=== PATIENT | female | born 1965 | race Asian ===

== ENCOUNTER 2016-08-28 23:20 | Emergency (ER) | payer OTHER ==
--- NOTE | ~2016-08-28 | CT2 ---
[facility] A Service of [facility] & [facility] RADIOLOGY TEXT RESULTS PATIENT: JOAQUIN QUIJANO LOCATION: [facility] : [birth year] UNIT #: [id number] AGE: [address]: Jay Hook DO SEX: F ORDER DR: [id number] [facility] [address]. [place], [place] [address] [id number] E MR#: [id number] #: [id number] NAME: JOAQUIN QUIJANO : 1965 SEX: F STUDY DATE/TIME: 08/29/2016 0:53 UNIT: [facility] ROOM: STUDY DESCRIPTION: CT Abd and Pelv W Cont Attending Physician: Jay Hook D.O. Ordering Physician: Jay Hook D.O. Primary Care Physician: Primary Care Physician No MEDICAL IMAGING REPORT This report is preliminary unless electronic signature is present EXAM CT abdomen and pelvis with contrast INDICATIONS Abdominal pain for a month, nausea and vomiting. TECHNIQUE The patient was given 100 mL of Isovue-370 and axial 5-mm images were obtained through the abdomen and pelvis. This CT exam was performed with one or more of the following radiation dose reduction techniques: Automatic exposure control, adjustment of mA and/or kV according to patient size, and iterative reconstruction. There is no comparison. FINDINGS The lung bases are clear. There is a left lobe hepatic lesion that is low in density with some minimal peripheral nodular enhancement and is likely a hemangioma. It is 2.7 cm in diameter. The spleen, pancreas, adrenal glands and kidneys are normal. The gallbladder is normal. The bowel is normal. The uterus has a large fibroid in its anterior myometrium measuring 4.5 cm in diameter and is otherwise normal. There is a right ovarian cyst measuring 5.4 cm in diameter. The bones are unremarkable. The right ovarian cystic lesion has a small amount of soft tissue density along one side and is otherwise unilocular. IMPRESSION 1. 5.4 cm slightly complex right ovarian cystic lesion. 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 2. 4.5 cm uterine fibroid. 3. 2.7 cm lesion in the left lobe of the liver which is very likely a hemangioma. Correlation with any old studies is recommended and/or STS. [facility] A Service of [facility] & [facility] RADIOLOGY TEXT RESULTS PATIENT: JOAQUIN QUIJANO LOCATION: [facility] : [birth year] UNIT #: [id number] AGE: [address]: Jay Hook DO SEX: F ORDER DR: follow up with an outpatient multiphase CT scan or MRI could be performed. 4. Otherwise, the study is normal. Dictated by... Kash Linn M.D. THIS IS AN ELECTRONICALLY VERIFIED REPORT Kash Linn M.D. at 08/29/2016 2:15 PM FEL/psc TD: 08/29/2016 01:47 JOB #: [id number] MEDICAL IMAGING REPORT Page 1 of 1 COPY
--- NOTE | ~2016-08-28 | EKG ---
PATIENT: JOAQUIN QUIJANO UNIT #: [id number] Ventricular Rate: 51 BPM Atrial Rate: 51 BPM P-R Interval: 144 ms QRS Duration: 78 ms Q-T Interval: 502 ms QTC Calculation(Bezet): 462 ms P [place]: 20 degrees Calculated R [place]: 44 degrees Calculated T [place]: 58 degrees Diagnosis Line: Sinus bradycardia Diagnosis Line: Borderline ECG Diagnosis Line: No previous ECGs available Diagnosis Line: Confirmed by AUBREE DOWNING MD ([id number]) on Diagnosis Line: 08/29/2016 7:20:29 AM INTERPRETING MD: GAYLA
[2016-08-28 22:44] LABS: EOSINOPHIL% 1.1 % (0.0-7.0); HEMATOCRIT 32.9 % (35.0-45.0); HEMOGLOBIN 11.1 gm/dL (12.0-16.0); LYMPHOCYTE# 2.1 X10e3 (1.0-3.5); LYMPHOCYTE% 56.5 % (17.0-45.0); MEAN CELL VOLUME 92.7 FL (83-96); MEAN CORPUSCULAR HEMOGLOBIN 31.4 PG (28-34); MEAN CORPUSCULAR HGB CONC 33.9 g/dL (30-36); MEAN PLATELET VOLUME 8.8 FL (6.5-11.5); MONOCYTE# 0.4 X10e3 (0-1.0); MONOCYTE% 9.7 % (3.0-12.0); NEUTROPHIL# 1.2 X10e3 (1.5-7.1); NEUTROPHIL% 31.7 % (40-75); PLATELET COUNT 239 X10e3 (140-420); RED BLOOD COUNT 3.55 X10e (3.90-5.30); RED CELL DISTRIBUTION WIDTH 12.2 % (11.0-15.5); WHITE BLOOD COUNT 3.7 X10e3 (4.0-10.5)
[2016-08-28 22:45] LABS: DIFF IND YES
[2016-08-28 23:03] LABS: ALBUMIN SERUM 3.7 g/dL (3.5-5.0); BILIRUBIN, DIRECT 0.1 mg/dL (0.0-0.2); BILIRUBIN,INDIRECT 0.7 mg/dL (0.0-0.9); BILIRUBIN,TOTAL 0.8 mg/dL (0.2-2.0); CALCIUM SERUM 8.6 mg/dL (8.4-10.2); CREATININE SERUM 0.5 mg/dL (0.6-1.4); GLOM FILT RATE Estimated 113.7 mL/min (>60); POTASSIUM 3.5 mmol/L (3.5-5.1); PROTEIN TOTAL SERUM 6.8 g/dL (6.0-8.3)
[2016-08-28 23:08] LABS: URINE SOURCE CLEAN CATCH
[2016-08-28 23:11] LABS: PLATELET ESTIMATE NORMAL (NORMAL); RBC NORMAL YES
[2016-08-28 23:15] LABS: URINE APPEARANCE CLEAR; URINE BILIRUBIN NEG (NEG); URINE BLOOD 2+ (NEG); URINE COLOR YELLOW; URINE GLUCOSE NEG (NEG); URINE KETONE NEG (NEG); URINE LEUKOCYTE ESTERASE NEG (NEG); URINE NITRATE NEG (NEG); URINE PROTEIN NEG (NEG)
[2016-08-28 23:18] LABS: U HYALINE CASTS AUWI 0-2 /[LPF]; URINE BACTERIA AUWI NEG (NEGATIVE); URINE SQUAMOUS EPITHELIAL CELL NONE SEEN /[HPF]; UWBCS1 AUWI 0-2 (0-5)
[2016-08-28 23:22] LABS: CULTURE INDICATED? NO
[2016-08-29 00:15] LABS: POC - CKMB <1.0 ng/mL (0.0-7.9); POC - TROPONIN <0.05 ng/mL (<=0.05)
== END 2016-08-29 05:07 | disposition home or self-care (01) ==
LOC: CED 23:20
PROVIDERS: Emergency Medicine
DX: R10.9 Unspecified abdominal pain (principal); R11.2 Nausea with vomiting, unspecified; Z98.51 Tubal ligation status
CPT/HCPCS: 36415; 74177; 80048; 80076; 81003; 82150; 82553; 83690; 84484; 84703; 85025; 93005; 96361; 96374; 96375; 96376; 99284; J2270; J2405; J2550; Q9967